=== PATIENT | male | born 1945 ===

== ENCOUNTER 2018-05-10 09:46 | Outpatient (CLI) | payer OTHER ==
[~2018-05-10] VITALS: Ht 172.7 cm; Wt 68.0 kg
== END 2018-05-10 10:00 | disposition home or self-care (01) ==
LOC: OFIC 805 09:46
DX: H61.21 Impacted cerumen, right ear (principal); H90.3 Sensorineural hearing loss, bilateral; R42 Dizziness and giddiness

== ENCOUNTER 2018-06-10 09:16 | Outpatient (CLI) | payer OTHER ==
[~2018-06-10] VITALS: Ht 152.4 cm; Wt 68.0 kg
== END 2018-06-10 09:35 | disposition home or self-care (01) ==
LOC: OFIC 805 09:16
DX: H91.8X3 Other specified hearing loss, bilateral (principal); R42 Dizziness and giddiness

== ENCOUNTER 2018-09-09 09:24 | Outpatient (CLI) | payer OTHER ==
[~2018-09-09] VITALS: Ht 152.4 cm; Wt 68.0 kg
== END 2018-09-09 09:42 | disposition home or self-care (01) ==
LOC: OFIC 805 09:24
DX: R42 Dizziness and giddiness (principal); H91.8X3 Other specified hearing loss, bilateral